=== PATIENT | female | born 1980 | race Caucasian/White ===

== ENCOUNTER → 2024-04-09 08:14 | Outpatient (REF) | payer OTHER, SELFPAY | LOC: WDC 08:14 | PROVIDERS: ATTENDING PHYSICIAN Obstetrics & Gynecology; FAMILY PHYSICIAN Family Medicine | DX: Z12.31 Encounter for screening mammogram for malignant neoplasm of breast (principal) | CPT/HCPCS: 77063; 77067 ==

== ENCOUNTER 2024-07-05 11:59 | Emergency (ER) | payer OTHER, SELFPAY ==
[2024-07-05 12:03] VITALS: BP 136/84
--- NOTE | 2024-07-05 13:39 | ED.GENMED ---
History of Present Illness
General
Chief Complaint: Back Pain
Source: patient
Exam Limitations: none
Time Seen by Provider: 07/05/24 12:48
Nursing documentation reviewed up to this point in time: agreed with
History of Present Illness
History of Present Illness:
43-year-old female presents to the ER complaining of low back pain that started on . She denies any actual injury but pain has progressed. She feels the pain is mostly the left lower back but does feel that it rotates across the back down
both of her buttocks and legs. She denies any numbness tingling weakness. She does have a history of disc issues in the past but denies any acute injury. She is taken occasional Tylenol but nothing else for pain. She denies any leg weakness.
Denies any loss of bowel or bladder. Denies any saddle paresthesia numbness tingling weakness in legs. Denies any urinary frequency urgency or dysuria.
Past History
Past History
ED Past Medical History: None
ED Past Surgical History: Appendectomy and
Social History
Tobacco: Non-smoker
Personal:
Living: with family
Employment: Employed
Review of Systems
Review of Systems
Allergies reviewed?: Yes
All Other Systems: ROS reviewed and negative except as documented in HPI and ROS
Constitutional: Reports no symptoms; Denies fever, fatigue or chills
Respiratory: Reports no symptoms
Cardiac: Reports no symptoms
ABD/GI: Reports no symptoms
: Denies flank pain, incontinence, urgency or discharge
Musculoskeletal: Reports back pain
Skin: Reports no symptoms
Neurological: Reports no symptoms; Denies numbness
Psychiatric: Reports no symptoms
Phy Exam
General Physical Exam
General Presentation: no apparent distress
General age: appears stated age
General Skin: warm and dry
General Habitus: normal
General Mental: alert
General Hydration: appears well hydrated
Neurological Exam
Neurological Exam: alert, oriented x3, no motor deficits, no sensory deficits, speech normal and other (Normal strength of bilateral lower extremities normal dorsiflexion plantarflexion normal toe reflexes bilaterally negative straight leg raise.)
Musculoskeletal Exam
Musculoskeletal Exam: full ROM and other ( no tenderness however pt c/o of discomfort with full ROM (sitting up and bending forward) )
Skin Exam
Skin Exam: normal color and warm/dry
Psychiatric Exam
Psychiatric Exam: normal mood/affect
Course
Orders/Labs/Results
Orders:
Orders
07/05/24 13:39
Acetaminophen [Tylenol] 1,000 mg PO NOW STA
Ketorolac [Toradol] 30 mg IM NOW STA
Lidocaine [Lidocaine 4% Patch] 1 patch TOPICAL NOW STA
Apply Lidocaine patch(s) to:: left lower back
diazePAM [Valium Injection] 5 mg IM NOW STA
Vital Signs
Initial and Last Documented VS:
Initial Vital Signs
Temp Pulse Resp BP Pulse Ox
98.5 F 93 18 136/84 98
07/05/24 12:03 07/05/24 12:03 07/05/24 12:03 07/05/24 12:03 07/05/24 12:03
Last Documented Vital Signs
Temp Pulse Resp BP Pulse Ox
98.5 F 93 18 136/84 98
07/05/24 12:03 07/05/24 12:03 07/05/24 12:03 07/05/24 12:03 07/05/24 12:03
MDM/Problems Addressed
Differential Diagnosis Includes:
not limited to : muscle sprain/strain, back pain
MDM/Problems Addressed:
Symptoms are consistent with back pain however no concerning findings. patient has no neurological deficit she is in no acute distress symptoms are worse with movement. likely musculoskeletal back pain. Patient was given Valium here medicated
with Toradol Tylenol lidocaine patch feeling somewhat improved this likely will take time. I did order baseline x-ray patient declines which is reasonable as it is likely will not show anything concerning. She is afebrile in no acute distress.
She denies any fever chills recent illness. She denies any trauma. No concerning signs of cauda equina or any other neurologic findings.
it is recommended she follow-up with her family doctor and x-rays for reevaluation if symptoms do not prove she may need additional imaging.
*Pulse Oximetry
Patient hypoxic: no
*Critical Care Note
Total Time (30-74mins, 75-104mins- exclusive of procedures): Not Applicable
ED Attending Note
-
Portions of this chart may have been created with voice recognition software.� Occasional wrong word or��sound alike� substitutions may have occurred due to the inherent limitations of voice recognition software.
Discharge Plan
Departure
Patient Disposition: Home (Routine Discharge)
Date of Disposition: 07/05/24
Time of Disposition: 15:02
Patient with high blood pressure during this ER visit?: Yes
Condition: Fair
Covid-19: Not Applicable
Discharge Problem:
Low back pain
Instructions: Low Back Pain (DC), BLOOD PRESSURE
Prescriptions:
New
cyclobenzaprine 10 mg tablet
10 mg PO Q8H PRN (Reason: muscle spasm) Qty: 10 0RF
lidocaine 5 % adhesive patch,medicated
1 patch topical DAILY Qty: 15 0RF
No Action
multivitamin [Daily Multiple] 1 EACH tablet
1 ea PO DAILY
Referrals:
Froylan Patten MD [Family Provider] -
Activity Restrictions/Additional Instructions:
As discussed you may alternate between ibuprofen and Tylenol.
You may take ibuprofen 400 occipital grams every 8 hours with food and alternate with Tylenol 650 mg every 6 hours.
You may intermittently alternate between ice and heat.
Avoid heavy lifting twisting turning may do gentle walking
A prescription for muscle laxer Flexeril sent to pharmacy take as directed. This medication will cause drowsiness no driving or drink alcohol up a medication. In addition you may use lidocaine patches which were sent to your pharmacy. Follow-up
with your family doctor the next 1 -2 days. Return if any worsening of symptoms.
Interventions
Interventions:
*Risk Screen - Suicide Last Done: 07/05/24 12:03
*General Assessment Last Done: 07/05/24 12:03
*Neglect/Abuse Screening Last Done: 07/05/24 12:03
*ED COVID-19 Vaccine History Last Done: 07/05/24 13:45
ED-Musculoskeletal Assessment Last Done: 07/05/24 13:45
Discharge Date and Time
Print Language: NAURUAN
[2024-07-05] MEDS: TORADOL 30 MG IM (13:59)
[2024-07-05] MEDS: LIDOCAINE 4% PATCH 1 PATCH TOPICAL (13:59)
[2024-07-05] MEDS: TYLENOL 1000 MG PO (14:00)
[2024-07-05] MEDS: VALIUM INJECTION 5 MG IM (14:00)
[2024-07-05 15:16] VITALS: BP 109/74
== END 2024-07-05 15:18 | disposition home or self-care (01) ==
LOC: EMR 11:59
PROVIDERS: EMERGENCY PHYSICIAN Emergency Medicine; FAMILY PHYSICIAN Family Medicine
DX: M54.50 Low back pain, unspecified (principal); Z90.49 Acquired absence of other specified parts of digestive tract
CPT/HCPCS: 96372; 99284